=== PATIENT | male | born 1965 | race Caucasian/White ===

== ENCOUNTER → 2017-06-21 | Outpatient (CLI) | payer OTHER ==
[~2017-06-21] MED LIST: IOPAMIDOL 370 MG/ML 200 ML INFUS..BTL INJ ONE; SODIUM CHLORIDE 0.9% 50ML 50 ML ONE
[2017-06-21 14:58] LABS: BLOOD UREA NITROGEN 9 mg/dL (7-26); BUN/CREATININE RATIO 10 (6-25); CREATININE, SERUM 0.87 mg/dL (0.72-1.25); EST GLOMERULAR FILTRATION RATE > 60 ML/MIN (60-)
[2017-06-21 15:49] LABS: BASOPHILS # (AUTO) 0.1 (0.0-0.1); BASOPHILS % 0.6 % (0.0-1.0); EOSINOPHILS % 0.1 % (0.0-6.0); HEMATOCRIT 36.5 % (38.2-49.6); HEMOGLOBIN 12.8 g/dL (14.0-18.0); LYMPHOCYTES # (AUTO) 1.2 (1.0-3.2); LYMPHOCYTES % 12.6 % (18.0-39.1); MEAN CORPUSCULAR HEMOGLOBIN 36.8 pg (28-32); MEAN CORPUSCULAR HGB CONC 35.1 g/dL (31-35); MEAN CORPUSCULAR VOLUME 104.9 fL (81-99); MONOCYTES % 10.2 % (4.4-11.3); NEUTROPHILS # (AUTO) 7.3 (2.1-6.9); NEUTROPHILS % 76.2 % (38.7-80.0); PLATELET COUNT 402 x10e3/uL (140-360); RED BLOOD COUNT 3.48 x10e6/uL (4.3-5.7)
[2017-06-21 15:54] LABS: AMPHETAMINES SCREEN,URINE NEGATIVE (NEGATIVE); BENZODIAZEPINES SCREEN,URINE NEGATIVE (NEGATIVE); PHENCYCLIDINE SCREEN,URINE NEGATIVE (NEGATIVE)
[2017-06-21 15:59] LABS: ALANINE AMINOTRANSFERASE 88 IU/L (0-55); ALBUMIN 3.7 g/dL (3.5-5.0); ALBUMIN/GLOBULIN RATIO 0.9 (0.8-2.0); ALKALINE PHOSPHATASE 115 IU/L (40-150); ANION GAP 20.6 mmol/L (8-16); BLOOD UREA NITROGEN 9 mg/dL (7-26); BUN/CREATININE RATIO 10 (6-25); CALCIUM 9.2 mg/dL (8.4-10.2); CARBON DIOXIDE 25 mmol/L (22-29); CHLORIDE 96 mmol/L (98-107); CREATININE, SERUM 0.87 mg/dL (0.72-1.25); EST GLOMERULAR FILTRATION RATE > 60 ML/MIN (60-); GLUCOSE 97 mg/dL (74-118); POTASSIUM 3.6 mmol/L (3.5-5.1); SODIUM 138 mmol/L (136-145)
[2017-06-21 16:18] LABS: THYROID STIMULATING HORMONE 1.326 uIU/mL (0.350-4.940)
--- NOTE | 2017-06-21 17:12 | Diagnostic Imaging Report ---
PROCEDURE:CT scan of the chest WITH intravenous contrast, using PE protocol. TECHNIQUE: The chest was scanned utilizing a multidetector helical scanner from the lung apex through the level of the adrenal glands after the IV administration of 100 cc of Isovue 370, with special concentration in the pulmonary arteries.. Coronal and sagittal multiplanar reformations were obtained. COMPARISON: None. INDICATIONS: SHORTNESS OF BREATH, TACHYCARDIA FINDINGS: Lines/tubes: None. Lungs and Airways: No filling defects in the main, right or left pulmonary arteries to the segmental level to suggest pulmonary embolus and. Embolism. Mild bilateral centrilobular emphysematous and paraseptal bullous changes, predominantly in the apices. No consolidation or pulmonary masses. Minimal atelectatic changes in the right lower lobe (series 3, image 119). No significant pulmonary nodules. Airways are clear, without endobronchial lesions. Pleura: No effusion, or pneumothorax. Heart and mediastinum: Thyroid is unremarkable. Heart size is normal. No pericardial effusion. Aorta is non-aneurysmal. The main pulmonary artery is enlarged, measuring 3.7 cm. Lymph nodes: Enlarged right lower paratracheal lymph node measuring 1.3 cm in short axis (series 2, image 45). Mildly enlarged left lower paratracheal lymph node, measuring 1.0 cm in short axis (series 2, image 46). Mildly enlarged subcarinal lymph node measuring 1.2 cm in short axis (series 2 image 55). No hilar or mediastinal adenopathy. Abdomen: Limited contrast-enhanced views of the upper abdomen show no abnormality within the visualized spleen, pancreas, or a left kidney. 1.0 cm fluid density simple cyst in the superior pole of the right kidney (series 2, image 135). Hepatic steatosis, predominantly involving the right lobe.. The adrenal glands are normal. Bones: No aggressive lytic lesions. Soft tissues are grossly unremarkable. IMPRESSION: 1. no CT evidence of pulmonary embolism. 2. Mild bilateral centrilobular emphysematous and paraseptal bullous changes, predominantly in the apices. 3. Mildly enlarged right lower paratracheal, left lower paratracheal, and subcarinal lymph nodes, which may be reactive. 4. Hepatic steatosis. 5. Enlarged main pulmonary artery, likely reflecting pulmonary hypertension. Teodoro Coyne M.D. Dictated by: Teodoro Coyne M.D. on 06/21/2017 at 17:11 Electronically approved by: Teodoro Coyne M.D. on 06/21/2017 at 17:11
== END ==
LOC: CT 13:59
PROVIDERS: ATTEND Internal Medicine Interventional Cardiology
DX: R06.02 Shortness of breath (principal); R00.0 Tachycardia, unspecified
CPT/HCPCS: 36415; 71260; 80053; 80307; 82565; 84443; 84520; 85025; Q9967